=== PATIENT | male | born 1995 | race Caucasian/White ===

== ENCOUNTER 2020-10-29 11:57 | Emergency (ER) | payer OTHER | END 2020-10-29 18:08 | disposition home or self-care (01) | LOC: ER1 11:57 | DX: L60.0 Ingrowing nail (principal); F17.200 Nicotine dependence, unspecified, uncomplicated; Z90.89 Acquired absence of other organs | CPT/HCPCS: 99283 ==

== ENCOUNTER 2020-10-31 17:52 | Emergency (ER) | payer OTHER ==
[2020-10-31 20:39] LABS: HEMOGLOBIN 16.9 gm/dl (14.0-17.5); RED BLOOD COUNT 5.09 M/UL (4.20-5.50)
[2020-10-31 21:11] LABS: BUN/CREATININE RATIO 8 (0-10)
== END 2020-10-31 23:51 | disposition home or self-care (01) ==
LOC: ER1 17:52
PROVIDERS: Physician Assistant
DX: U07.1 COVID-19 (principal); F17.200 Nicotine dependence, unspecified, uncomplicated; Z90.89 Acquired absence of other organs
CPT/HCPCS: 80053; 85025; 99284; U0002